=== PATIENT | male | born 1930 | race Two or more races ===

== ENCOUNTER → 2018-04-03 | Outpatient (CLI) | payer OTHER ==
[~2018-04-03] MED LIST: ARICEPT5 MG; ASPIR 8181 MG; ASPIR-MOX 325325 MG; AVAPRO75 MG; CARVEDILOL6.25 MG; DOXYCYCLINE HY100 MG PO; FINASTERIDE5 MG; INVOKANA300 MG; LIPITOR40 MG; METFORMIN HCL1000 MG; PLAVIX75 MG; SERTRALINE HCL50 MG; ZANTAC150 M3 PO
== END | disposition home or self-care (01) ==
LOC: TOM 09:00
DX: M25.561 Pain in right knee (principal); R26.0 Ataxic gait; F02.80 Dementia in other diseases classified elsewhere, unspecified severity, without behavioral disturbance, psychotic disturbance, mood disturbance, and anxiety

== ENCOUNTER 2019-07-17 13:52 | Emergency (ER) | payer OTHER ==
[~2019-07-17] VITALS: Ht 165.1 cm; Wt 83.9 kg
[2019-07-17] MEDS ORDERED: LAMICTAL100 M1 (14:41)
[2019-07-17] MEDS ORDERED: CARVEDILOL6.25 MG (14:42)
[2019-07-17] MEDS ORDERED: PROSCAR5 MG (14:42)
[2019-07-17] MEDS ORDERED: CYMBALTA30 MG (14:42)
[2019-07-17] MEDS ORDERED: JANUVIA100 MG (14:42)
[2019-07-17] MEDS ORDERED: VITAMIN D32000 UNI2 (14:43)
[2019-07-17] MEDS ORDERED: TAMS0.4C (14:43)
[2019-07-17] MEDS ORDERED: PLAVIX75 MG (14:43)
[2019-07-17] MEDS ORDERED: SYNTHROID100 MCG (14:43)
[2019-07-17] MEDS ORDERED: ARICEPT10 MG (14:43)
== END 2019-07-17 17:39 | disposition home or self-care (01) ==
LOC: ER 13:52
DX: S01.82XA Laceration with foreign body of other part of head, initial encounter (principal); W06.XXXA Fall from bed, initial encounter; Y93.89 Activity, other specified; Y92.092 Bedroom in other non-institutional residence as the place of occurrence of the external cause; Y99.8 Other external cause status

== ENCOUNTER 2019-09-21 14:17 | Outpatient (CLI) | payer OTHER ==
[~2019-09-21 14:17] MED LIST changes: +ARICEPT10 MG; +CYMBALTA30 MG; +JANUVIA100 MG; +LAMICTAL100 M1; +PROSCAR5 MG; +SYNTHROID100 MCG; +TAMS0.4C; +VITAMIN D32000 UNI2
== END 2019-09-21 14:28 | disposition home or self-care (01) ==
LOC: RAD 14:17
DX: S29.0 Injury of muscle and tendon at thorax level (principal)

== ENCOUNTER 2019-09-25 14:18 | Outpatient (CLI) | payer OTHER | END 2019-09-25 14:39 | disposition home or self-care (01) | LOC: RAD 14:18 | PROVIDERS: ATTEND Internal Medicine Geriatric Medicine | DX: M54.89 Other dorsalgia (principal) ==